=== PATIENT | female | born 1945 | race Caucasian/White ===

== ENCOUNTER 2018-12-26 06:38 | Inpatient (IN) | payer OTHER, MEDICARE ==
[2018-12-26] MEDS ORDERED: BENZOIN TINCTURE SWABSTICK TP ONE ×2 (07:28→14:17)
[2018-12-26] MEDS ORDERED: THROMBIN (BOVINE) 5,000 UNIT VIAL TP ONE ×2 (07:28→11:03)
[2018-12-26] MEDS ORDERED: HEPARIN NA (PORCINE) 5,000 UNITS/ML 1ML VIAL ONE (07:28)
[2018-12-26] MEDS ORDERED: BUPIVACAINE LIPOSOME/PF (EXPAREL) 266 MG/20 ML VIAL ONE (08:30)
[2018-12-26] MEDS ORDERED: BUPIVACAINE HCL/PF 0.5% (5MG/ML) 10 ML VIAL ONE (08:30)
[2018-12-26 08:58] LABS: EPI CELLS 5.4 /HPF (0-5/HPF); HYALINE CASTS 3 /lpf (0-8); PH,URINE 5.5 (5.0-8.0); URINE APPEARANCE CLEAR; URINE BACTERIA 41.6 /hpf (NEGATIVE); URINE BILIRUBIN NEGATIVE (NEGATIVE); URINE COLOR YELLOW; URINE GLUCOSE (UA) NEGATIVE (NEGATIVE); URINE KETONE NEGATIVE (NEGATIVE); URINE LEUK ESTERASE 2+ (NEGATIVE); URINE NITRITE NEGATIVE (NEGATIVE); URINE PROTEIN NEGATIVE (NEGATIVE); URINE RBC 1 /hpf (0-4); URINE UROBILINOGEN 0.2 mg/dL (0.2-1.0); URINE WBC 13 /hpf (0-5)
[2018-12-26] MEDS ORDERED: SUCCINYLCHOLINE CHLORIDE 200 MG/10 ML SYRINGE ONE (09:12)
[2018-12-26] MEDS ORDERED: PROPOFOL 20 ML ONE ×11 (09:12→13:20)
[2018-12-26] MEDS ORDERED: HYDROmorphone HCl 2 MG/ML VIAL ONE (09:12)
[2018-12-26] MEDS ORDERED: fentaNYL CITRATE 250 MCG/5 ML VIAL ONE ×2 (09:12→12:00)
[2018-12-26] MEDS ORDERED: ROCURONIUM BROMIDE 50 MG/5 ML VIAL ONE (09:13)
[2018-12-26] MEDS ORDERED: MIDAZOLAM HCL 2 MG/2 ML SINGLE DOSE VIAL ONE ×3 (09:13)
[2018-12-26] MEDS ORDERED: TRANEXAMIC ACID 1000 MG/10 ML VIAL ONE ×2 (09:15→10:52)
[2018-12-26] MEDS ORDERED: ceFAZolin SODIUM 1 GM VIAL ONE ×2 (09:15→22:27)
[2018-12-26] MEDS ORDERED: VANCOMYCIN 1,000 MG VIAL (RESTRICTED TO ID ONLY) ONE (09:15)
[2018-12-26] MEDS ORDERED: DEXAMETHASONE SOD PHOSPHATE 4 MG/1 ML VIAL ONE ×2 (09:15→09:46)
[2018-12-26] MEDS ORDERED: ceFAZolin SODIUM 1 GM VIAL IVPB ONE ×2 (09:40→12:52)
[2018-12-26] MEDS ORDERED: MORPHINE 5 MG/10 ML AMP - FOR COMPOUNDING USE ONLY ONE (09:54)
[2018-12-26] MEDS ORDERED: VANCOMYCIN 1,000 MG VIAL (RESTRICTED TO ID ONLY) IVPB ONE (10:00)
[2018-12-26] MEDS ORDERED: GELATIN, ABSORBABLE 100 EACH SPONGE TP ONE (11:04)
[2018-12-26] MEDS ORDERED: BUPIVACAINE LIPOSOME/PF (EXPAREL) 266 MG/20 ML VIAL IJ ONE ×2 (11:05→13:20)
[2018-12-26] MEDS ORDERED: BUPIVACAINE HCL/PF (5 MG/ML) 30 ML VIAL IJ ONE ×2 (11:05→13:20)
[2018-12-26] MEDS ORDERED: ePHEDrine SULFATE 50 MG/1 ML AMPULE ONE (11:34)
--- NOTE | 2018-12-26 12:49 | PN ---
Progress Note (short form) - Note Progress Note: 73F s/p removal of failed & displaced thoracolumbar hardware, inspection of fusion mass, revision instrumentation T11-S1, and revision posterolateral arthrodesis T11-S1. -Admit to ICU post-op. -Pain control: DIRECTOR OF CAREER RESOURCES if needed; transition to oral analgesia post-op; NO NSAID's. -DVT PPx: -Mechanical only: DORITA's, SCD's. -Chemical: None. -Incentive spirometry. -NPO until flatus. -Seals care; d/c when ambulating. -Post-op Ancef x 3 doses. -PT/OT/Rehab, OOB. -WBAT B/L LE. -No bending, lifting (>5 lbs), or twisting for 9-12 months. -Care per ICU & medical hospitalist teams. -Discharge planning: f/u 7-10 days after discharge at [facility] office; call for appointment; . -Will follow. Thang Connolly MD (Orthopaedic Surgery).
--- NOTE | 2018-12-26 12:55 | OP ---
Operative Note - Note: Operative Date: 12/26/18 Pre-Operative Diagnosis: 1. Displaced, failed thoracic hardware. 2. Thoracolumbar pseudarthrosis. 3. Thoracolumbar spinal instability Operation: 1. Removal of failed & displaced thoracolumbar hardware. 2. Inspection of fusion mass. 3. Revision instrumentation T11-S1. 4. Revision posterolateral arthrodesis T11-S1. 5. Revision decompression T11-L3. 6. Bone autograft. 7. Bone allograft. 8. Bone marrow aspirate concentrate Findings: Failed hardware at thoracolumbar junction with displaced screw caps and rods resting outside screw tulips. Pseudarthrosis thoracolumbar spine. Post-Operative Diagnosis: Same as Pre-op Surgeon: Thang Connolly Crane Oiler: Zoran Connolly Anesthesiologist/FORENSIC MATERIALS ENGINEER: Darrin Bhat Anesthesia: General Specimens Removed: Thoracolumbar hardware Estimated Blood Loss (mls): 600 Drains & Tubes with Location: 1 x deep HemoVac Blood Volume Replaced (mls): 250 (Cell Saver) Fluid Volume Replaced (mls): 2,000 (Crystalloid) Operative Report Dictated: Yes
[2018-12-26] MEDS ORDERED: BENZOIN/ALOE VERA/STORAX/TOLU 58 ML BOTTLE TP ONE (14:18)
[2018-12-26] MEDS ORDERED: oxyCODONE HCL 5 MG TABLET PO PRN (14:43)
--- NOTE | 2018-12-26 15:14 | CONSULT ---
Consultation: REQUESTING PROVIDER: Dr Connolly CONSULT REQUEST: We have been asked to medically evaluate this patient for ( specify). HISTORY OF PRESENT ILLNESS: 73 y/o female with PMH of COPD, HTN, HLD is POD #0 s/p removal of failed and displaced thoracolumbar hardware inspection of fusion mass, revision instrumentation T11-S1, and revision posterolateral arthrodesis T11-S1 . Patient was kept intubated for few hours post-op as per anesthesiologist due to prone positioning- her eyes appeared edematous and there was concern for some airway edema as well; but patient was extubated at 5:25 pm and placed on nasal canula REVIEW OF SYSTEMS: (unobtained as patient is intubated) CONSTITUTIONAL: Absent: fever, chills, diaphoresis, generalized weakness, malaise, loss of appetite, weight change HEENT: Absent: rhinorrhea, nasal congestion, throat pain, throat swelling, difficulty swallowing, mouth swelling, ear pain, eye pain, visual changes CARDIOVASCULAR: Absent: chest pain, syncope, palpitations, irregular heart rate, lightheadedness , peripheral edema RESPIRATORY: Absent: cough, shortness of breath, dyspnea with exertion, orthopnea, wheezing, stridor, hemoptysis GASTROINTESTINAL: Absent: abdominal pain, abdominal distension, nausea, vomiting, diarrhea, constipation, melena, hematochezia GENITOURINARY: Absent: dysuria, frequency, urgency, hesitancy, hematuria, flank pain, genital pain MUSCULOSKELETAL: Present: back pain Absent: myalgia, arthralgia, joint swelling,, neck pain SKIN: Absent: rash, itching, pallor HEMATOLOGIC/IMMUNOLOGIC: Absent: easy bleeding, easy bruising, lymphadenopathy, frequent infections ENDOCRINE: Absent: unexplained weight gain, unexplained weight loss, heat intolerance, cold intolerance NEUROLOGIC: Absent: headache, focal weakness or paresthesias, dizziness, unsteady gait, seizure, mental status changes, bladder or bowel incontinence PSYCHIATRIC: Absent: anxiety, depression, suicidal or homicidal ideation, hallucinations. PHYSICAL EXAMINATION Vital Signs - 24 hr 12/26/18 12/26/18 07:07 07:08 Temperature 97.6 F 97.6 F Pulse Rate 70 70 Respiratory 20 20 Rate Blood Pressure 150/92 150/92 O2 Sat by Pulse 99 Oximetry (%) GENERAL: intubated, sedated . EYES: PEERLA; EOMI; no scleral icterus . NECK:no JVD; no lymphadenopathy LUNGS: CTA B/L; no rales, rhonchi or wheezing HEART: Regular rate and rhythm, normal S1 and S2 without murmur, rub or gallop. ABDOMEN: Soft, NT/ND +BS in all 4 quadrants MUSCULOSKELETAL: Normal range of motion at all joints. No bony deformities or tenderness. No CVA tenderness. EXTREMITIES: SCD;s in place- warm; well-perfused no clubbing/cyanosis or edema NEUROLOGICAL: moving all extremities ; sensation intact throughout PSYCHIATRIC: Cooperative. Good eye contact. Appropriate mood and affect. SKIN: Warm, dry, normal turgor, no rashes or lesions noted. Laboratory Results - last 24 hr 12/26/18 12/26/18 12/26/18 06:51 07:30 08:08 Urine Color Yellow Urine Appearance Clear Urine pH 5.5 Ur Specific [place] 1.017 Urine Protein Negative Urine Glucose (UA) Negative Urine Ketones Negative Urine Blood Negative Urine Nitrite Negative Urine Bilirubin Negative Urine Urobilinogen 0.2 Ur Leukocyte Esterase 2+ H Urine WBC (Auto) 13 Urine RBC (Auto) 1 Urine Casts (Auto) 3 U Epithel Cells (Auto) 5.4 Urine Bacteria (Auto) 41.6 Blood Type A POSITIVE A POSITIVE Antibody Screen Negative Active Medications Generic Name Dose Route Start Last Admin Trade Name Ikerq PRN Reason Stop Dose Admin Acetaminophen 1,000 mg 12/26/18 14:45 Ofirmev Injection - IVPB 12/27/18 06:46 Q8H [facility] Albuterol Sulfate puff 12/26/18 18:00 Ventolin Hfa Inhaler - IH QID [facility] Amlodipine Besylate 10 mg 12/27/18 10:00 Norvasc - PO DAILY [facility] Donepezil HCl 10 mg 12/27/18 10:00 Aricept - PO DAILY [facility] Hydroxyzine HCl 25 mg 12/26/18 22:00 Atarax - PO HS [facility] Lactated Ringer's 1,000 mls @ 125 mls/hr 12/26/18 14:45 Lactated Ringers Solution IV ASDIR [facility] Cefazolin Sodium 1 gm/ 50 mls @ 100 mls/hr 12/26/18 17:30 Dextrose IVPB 12/27/18 05:59 Q6H [facility] Metoprolol Succinate 50 mg 12/27/18 10:00 Toprol Xl - PO DAILY [facility] Non-Formulary Medication 40 mg 12/27/18 10:00 Benazepril Hcl [Lotensin] PO DAILY [facility] Non-Formulary Medication 600 mg 12/26/18 22:00 Gabapentin [Neurontin] PO TID [facility] Non-Formulary Medication 80 mg 12/26/18 22:00 Lovastatin [Altoprev] PO HS [facility] Non-Formulary Medication 50 mg 12/27/18 10:00 Mirabegron [Myrbetriq] PO DAILY [facility] Ondansetron HCl 4 mg 12/26/18 14:43 Zofran Injection IVPUSH Q6H PRN NAUSEA AND/OR VOMITING Oxycodone HCl 5 mg 12/26/18 14:43 Roxicodone - PO Q4H PRN PAIN LEVEL 1-5 Oxycodone HCl 10 mg 12/26/18 14:43 Roxicodone - PO Q4H PRN PAIN LEVEL 6-10 Pneumococcal 13-Valent Conj Vacc 0.5 ml 12/26/18 07:23 Prevnar 13 Syringe - IM 12/26/18 07:24 .ONCE ONE ASSESSMENT/PLAN: 73 y/o female with PMH of HTN, COPD, HLD, disc disease, peripheral neuropathy who is POD #0 s/p removal of failed and displaced hardware, inspection of fusion mass, revision instrumentation of T11-S1 and revision posterolateral arthrodesis T11-S1 #Neuro just extubated -will do full neuro exam once sedation wears off -c/w meds for peripheral neuropathy #POD #0 patient is no longer intubated EBL was 600 cc; replaced with 200 cell saver and 2000 crystalloid -dilaudid CRUISE AGENT; 50 fentanyl X4 ; 30 toradol X 2 -IV tylenol PRN -ancef x3 doses post op -dilaudid CRUISE AGENT -incentive spirometer -NPO -SCDS in place -monitor vitals/hemodynamics #Cardio HTN;HLD stable -resume home meds #Pulm COPD history -will resume home inhalers -monitor respiratory status F/E/N LR @125mls/hr monitor electrolytes NPO for now DVT PPX: SCDS Dispo: We will continue to follow the patient. Thank you for this consultative opportunity. Problem List - Problems (1) HTN (hypertension) Code(s): I10 - ESSENTIAL (PRIMARY) HYPERTENSION (2) COPD (chronic obstructive pulmonary disease) Code(s): J44.9 - CHRONIC OBSTRUCTIVE PULMONARY DISEASE, UNSPECIFIED (3) Peripheral neuropathy Code(s): G62.9 - POLYNEUROPATHY, UNSPECIFIED (4) S/P spinal surgery Code(s): Z98.890 - OTHER SPECIFIED POSTPROCEDURAL STATES Visit type - Emergency Visit Emergency Visit: Yes ED Registration Date: 12/26/18 Care time: The patient presented to the Emergency Department on the above date and was hospitalized for further evaluation of their emergent condition. - New Patient This patient is new to me today: Yes Date on this admission: 12/26/18 - Critical Care Critical Care patient: Yes Total Critical Care Time (in minutes): 35 Critical Care Statement: The care of this patient involved high complexity decision making to prevent further life threatening deterioration of the patient 's condition and/or to evaluate & treat vital organ system(s) failure or risk of failure.
[2018-12-26] MEDS ORDERED: ONDANSETRON 4 MG/2 ML VIAL IVPUSH PRN (15:40)
[2018-12-26] MEDS ORDERED: MIDAZOLAM HCL 2 MG/2 ML SINGLE DOSE VIAL IVPUSH PRN (15:41)
[2018-12-26] MEDS: ACETAMINOPHEN 1000 MG/100 ML VIAL (NON FORMULARY) IVPB SCH ×2 (16:04→22:28)
[2018-12-26] MEDS: LACTATED RINGERS SOLUTION 1,000 ML IV SCH (16:05)
[2018-12-26] MEDS: CEFAZOLIN 1 GM in DEXTROSE 5%-WATER - 50 ML IVPB SCH ×2 (16:32→23:59)
--- NOTE | 2018-12-26 16:35 | PN ---
Progress Note, Physician - Current Medication List Current Medications: Active Medications Acetaminophen (Ofirmev Injection -) 1,000 mg IVPB Q8H [facility] Stop: 12/27/18 06:46 Last Admin: 12/26/18 16:04 Dose: 1,000 mg Albuterol Sulfate (Ventolin Hfa Inhaler -) 2 puff IH RQID [facility] Amlodipine Besylate (Norvasc -) 10 mg PO DAILY [facility] Atorvastatin Calcium (Lipitor -) 20 mg PO HS [facility] Donepezil HCl (Aricept -) 10 mg PO DAILY [facility] Fentanyl (Sublimaze Injection -) 25 mcg IVPUSH [id number] PRN PRN Reason: PAIN-PACU ORDER X 4 DOSES ONLY Last Admin: 12/26/18 16:29 Dose: 25 mcg Gabapentin (Neurontin -) 600 mg PO TID [facility] Hydroxyzine HCl (Atarax -) 25 mg PO HS [facility] Lactated Ringer's (Lactated Ringers Solution) 1,000 mls @ 125 mls/hr IV ASDIR [facility] Last Admin: 12/26/18 16:05 Dose: 125 mls/hr Cefazolin Sodium 1 gm/ (Dextrose) 50 mls @ 100 mls/hr IVPB Q6H [facility] Stop: 12/27/18 05:59 Lisinopril (Prinivil) 40 mg PO DAILY [facility] Metoprolol Succinate (Toprol Xl -) 50 mg PO DAILY [facility] Midazolam HCl (Versed -) 2 mg IVPUSH ONCE PRN PRN Reason: AGITATION Stop: 12/27/18 15:40 Non-Formulary Medication (Mirabegron [Myrbetriq]) 50 mg PO DAILY [facility] Ondansetron HCl (Zofran Injection) 4 mg IVPUSH Q6H PRN PRN Reason: NAUSEA AND/OR VOMITING Oxycodone HCl (Roxicodone -) 5 mg PO Q4H PRN PRN Reason: PAIN LEVEL 1-5 Oxycodone HCl (Roxicodone -) 10 mg PO Q4H PRN PRN Reason: PAIN LEVEL 6-10 Pneumococcal 13-Valent Conj Vacc (Prevnar 13 Syringe -) 0.5 ml IM .ONCE ONE Stop: 12/26/18 07:24 - Objective Vital Signs: Vital Signs Temperature 97.4 F L 12/26/18 16:12 Pulse Rate 59 L 12/26/18 16:12 Respiratory Rate 20 12/26/18 16:12 Blood Pressure 123/80 12/26/18 16:12 O2 Sat by Pulse Oximetry (%) 100 12/26/18 15:00 Constitutional: Yes: No Distress Eyes: Yes: WNL HENT: Yes: WNL Neck: Yes: WNL Cardiovascular: Yes: WNL Respiratory: Yes: Intubated Gastrointestinal: Yes: WNL Genitourinary: Yes: WNL Musculoskeletal: Yes: WNL Extremities: Yes: WNL Edema: No Integumentary: Yes: WNL Wound/Incision: Yes: Clean/Dry, Well Approximated Neurological: Yes: WNL Assessment/Plan 73 yo lady with PMH of COPD, HTN, HLD s/p removal of failed and displaced thoracolumbar hardware inspection of fusion mass, revision instrumentation T11- S1, and revision posterolateral arthrodesis T11-S1 currently sedated and intubated. wean off vent as tolerated, pain management. -GI, DVT prophylaxis. -h/o chronic COPD: cont bronchodilators. -ID: treatd with cefazolin. -HTN: cont amlodipine, lisinopril, metoprolol. -peripheral neuropathy: cont gabapentin 600 mg TID -NPO, IV fluids -ICU care appreciated.
[2018-12-26] MEDS ORDERED: KETOROLAC TROMETHAMINE 30 MG/1 ML VIAL IVPUSH ONE (17:30)
[2018-12-26] MEDS: ALBUTEROL SO4 8 GM HFA INHALER IH SCH (17:34)
[2018-12-26] MEDS ORDERED: KETOROLAC TROMETHAMINE 30 MG/1 ML VIAL IVPUSH PRN (17:36)
[2018-12-26] MEDS ORDERED: PNEUMOC 13-VAL CONJ-DIP CRM/PF 0.5 ML DISP.SYRIN IM ONE (18:27)
[2018-12-26] MEDS: HYDROmorphone *PCA* 10MG/50ML DISP.SYRIN PCA SCH (18:39)
[2018-12-26] MEDS ORDERED: DEXTROSE 5%-WATER - 50 ML IVPB ONE (22:27)
[2018-12-26] MEDS: GABAPENTIN 300 MG CAPSULE (FP) PO SCH (22:28)
[2018-12-26] MEDS: ATORVASTATIN CA 20 MG TABLET (FP) PO SCH (22:29)
[2018-12-26] MEDS: hydrOXYzine HCL 25 MG TABLET (FP) PO SCH (23:59)
[2018-12-27] MEDS ORDERED: LABETALOL HCL 5 MG/1 ML (100MG/20 ML VIAL) IVPUSH ONE (00:27)
[2018-12-27] MEDS: hydrOXYzine HCL 25 MG TABLET (FP) PO SCH ×2 (00:32→21:14)
[2018-12-27] MEDS ORDERED: DEXTROSE 5%-WATER - 50 ML IVPB ONE (04:28)
[2018-12-27] MEDS ORDERED: ceFAZolin SODIUM 1 GM VIAL ONE (04:28)
[2018-12-27] MEDS: GABAPENTIN 300 MG CAPSULE (FP) PO SCH ×3 (05:00→21:14)
[2018-12-27] MEDS: CEFAZOLIN 1 GM in DEXTROSE 5%-WATER - 50 ML IVPB SCH (05:00)
[2018-12-27] MEDS: ACETAMINOPHEN 1000 MG/100 ML VIAL (NON FORMULARY) IVPB SCH (06:00)
[2018-12-27] MEDS ORDERED: amLODIPine BESYLATE 10 MG TABLET (FP) PO ONE (06:12)
[2018-12-27 06:40] LABS: HEMATOCRIT 34.6 % (32.4-45.2); HEMOGLOBIN 11.3 GM/dL (10.7-15.3); MCH 30.5 pg (25.7-33.7); MCHC 32.5 g/dl (32.0-36.0); MEAN CELL VOLUME 93.9 fl (80-96); MEAN PLT VOLUME 9.4 fl (7.5-11.1); PLATELET COUNT 192 K/MM3 (134-434); RBC 3.69 M/mm3 (3.60-5.2); RDW 14.1 % (11.6-15.6); WHITE BLOOD COUNT 12.1 K/mm3 (4.0-10.0)
[2018-12-27] MEDS: ONDANSETRON 4 MG/2 ML VIAL IVPUSH PRN ×2 (06:40→23:50)
[2018-12-27 06:43] LABS: CREATININE 0.8 mg/dL (0.55-1.3); MAGNESIUM 1.8 mg/dL (1.8-2.4); PHOSPHOROUS 3.5 mg/dL (2.5-4.9); POTASSIUM 4.1 mmol/L (3.5-5.1)
[2018-12-27] MEDS: ALBUTEROL SO4 8 GM HFA INHALER IH SCH ×4 (08:00→20:00)
--- NOTE | 2018-12-27 08:37 | PN ---
Physical Exam: SUBJECTIVE: Patient seen and examined at [facility]- no acute events overnight; patient states that she is in a lot of pain still and is nauseous but wants to eat; she denies CP/SOB OBJECTIVE: Vital Signs Period Temp Pulse Resp BP Sys/Jorge Pulse Ox Last 24 Hr 97.4 F-98.2 F 56-70 11-32 120-170/73-101 100-100 GENERAL: The patient is awake, alert, and fully oriented, in no acute distress. EYES: PEERLA: EOMI ;no scleral icterus . NECK:no JVD; no lymphadenopathy LUNGS: CTA B/L; no rales, rhonchi or wheezing HEART: Regular rate and rhythm, S1, S2 without murmur, rub or gallop. ABDOMEN: Soft, nontender, nondistended, normoactive bowel sounds, no guarding, no rebound, no hepatosplenomegaly, no masses. EXTREMITIES: 2+ pulses, warm, well-perfused, no edema; SCDS in place. NEUROLOGICAL: Cranial nerves II through XII grossly intact. Normal speech, gait not observed. 5/5 strength UE and LE B/L; sensation intact throughout PSYCH: Normal mood, normal affect. SKIN: Warm, dry, normal turgor, no rashes or lesions noted Laboratory Results - last 24 hr 12/26/18 12/26/18 12/26/18 06:51 07:30 08:08 WBC RBC Hgb Hct MCV MCH MCHC RDW Plt Count MPV Sodium Potassium Chloride Carbon Dioxide Anion Gap BUN Creatinine Est GFR (CKD-EPI)AfAm Est GFR (CKD-EPI)NonAf Random Glucose Calcium Phosphorus Magnesium Urine Color Yellow Urine Appearance Clear Urine pH 5.5 Ur Specific [place] 1.017 Urine Protein Negative Urine Glucose (UA) Negative Urine Ketones Negative Urine Blood Negative Urine Nitrite Negative Urine Bilirubin Negative Urine Urobilinogen 0.2 Ur Leukocyte Esterase 2+ H Urine WBC (Auto) 13 Urine RBC (Auto) 1 Urine Casts (Auto) 3 U Epithel Cells (Auto) 5.4 Urine Bacteria (Auto) 41.6 Blood Type A POSITIVE A POSITIVE Antibody Screen Negative 12/27/18 12/27/18 05:47 05:47 WBC 12.1 H RBC 3.69 Hgb 11.3 Hct 34.6 MCV 93.9 MCH 30.5 MCHC 32.5 RDW 14.1 Plt Count 192 MPV 9.4 Sodium 136 Potassium 4.1 Chloride 102 Carbon Dioxide 26 Anion Gap 9 BUN 10 Creatinine 0.8 Est GFR (CKD-EPI)AfAm 84.18 Est GFR (CKD-EPI)NonAf 72.63 Random Glucose 121 H Calcium 8.0 L Phosphorus 3.5 Magnesium 1.8 Urine Color Urine Appearance Urine pH Ur Specific [place] Urine Protein Urine Glucose (UA) Urine Ketones Urine Blood Urine Nitrite Urine Bilirubin Urine Urobilinogen Ur Leukocyte Esterase Urine WBC (Auto) Urine RBC (Auto) Urine Casts (Auto) U Epithel Cells (Auto) Urine Bacteria (Auto) Blood Type Antibody Screen Active Medications Generic Name Dose Route Start Last Admin Trade Name Freq PRN Reason Stop Dose Admin Albuterol Sulfate 2 puff 12/26/18 16:00 12/26/18 17:34 Ventolin Hfa Inhaler - IH Not Given RQID [facility] Amlodipine Besylate 10 mg 12/28/18 10:00 Norvasc - PO DAILY [facility] Atorvastatin Calcium 20 mg 12/26/18 22:00 12/26/18 22:29 Lipitor - PO 20 mg HS [facility] Administration Donepezil HCl 10 mg 12/27/18 10:00 Aricept - PO DAILY [facility] Gabapentin 600 mg 12/26/18 22:00 12/27/18 05:00 Neurontin - PO 600 mg TID [facility] Administration Hydromorphone HCl 10 mg 12/26/18 17:45 12/26/18 18:39 Dilaudid Dry Chain Puller - WAFER FABRICATION OPERATOR 10 mg WAFER FABRICATION OPERATOR [facility] Administration Protocol Hydroxyzine HCl 25 mg 12/26/18 22:00 12/27/18 00:32 Atarax - PO Not Given HS [facility] Lactated Ringer's 1,000 mls @ 125 mls/hr 12/26/18 14:45 12/26/18 16:05 Lactated Ringers Solution IV 125 mls/hr ASDIR [facility] Administration Ketorolac Tromethamine 30 mg 12/26/18 17:36 Toradol Injection - IVPUSH 12/27/18 06:30 ONCE PRN PAIN LEVEL 4 - 6 Lisinopril 40 mg 12/27/18 10:00 Prinivil PO DAILY [facility] Metoprolol Succinate 50 mg 12/27/18 10:00 Toprol Xl - PO DAILY [facility] Midazolam HCl 2 mg 12/26/18 15:41 Versed - IVPUSH 12/27/18 15:40 ONCE PRN AGITATION Non-Formulary Medication 50 mg 12/27/18 10:00 Mirabegron [Myrbetriq] PO DAILY [facility] Ondansetron HCl 4 mg 12/26/18 14:43 12/27/18 06:40 Zofran Injection IVPUSH 4 mg Q6H PRN Administration NAUSEA AND/OR VOMITING Oxycodone HCl 5 mg 12/26/18 14:43 Roxicodone - PO Q4H PRN PAIN LEVEL 1-5 Oxycodone HCl 10 mg 12/26/18 14:43 Roxicodone - PO Q4H PRN PAIN LEVEL 6-10 ASSESSMENT/PLAN: 73 y/o female with PMH of HTN, COPD, HLD, disc disease, peripheral neuropathy who is POD #0 s/p removal of failed and displaced hardware, inspection of fusion mass, revision instrumentation of T11-S1 and revision posterolateral arthrodesis T11-S1 #POD #1 patient is no longer intubated EBL was 600 cc; replaced with 200 cell saver and 2000 crystalloid -dilaudid WAFER FABRICATION OPERATOR; oxy 5/10 -IV tylenol PRN -ancef x3 doses post op -dilaudid WAFER FABRICATION OPERATOR -incentive spirometer -NPO -SCDS in place -monitor vitals/hemodynamics #Cardio HTN;HLD stable -resume home meds #Pulm COPD history -will resume home inhalers -monitor respiratory status F/E/N LR @125mls/hr monitor electrolytes clear diet DVT PPX: SCDS Problem List - Problems (1) HTN (hypertension) Code(s): I10 - ESSENTIAL (PRIMARY) HYPERTENSION (2) COPD (chronic obstructive pulmonary disease) Code(s): J44.9 - CHRONIC OBSTRUCTIVE PULMONARY DISEASE, UNSPECIFIED (3) Peripheral neuropathy Code(s): G62.9 - POLYNEUROPATHY, UNSPECIFIED (4) S/P spinal surgery Code(s): Z98.890 - OTHER SPECIFIED POSTPROCEDURAL STATES Visit type - Emergency Visit Emergency Visit: Yes ED Registration Date: 12/26/18 Care time: The patient presented to the Emergency Department on the above date and was hospitalized for further evaluation of their emergent condition. - New Patient This patient is new to me today: No - Critical Care Critical Care patient: Yes Total Critical Care Time (in minutes): 35 Critical Care Statement: The care of this patient involved high complexity decision making to prevent further life threatening deterioration of the patient 's condition and/or to evaluate & treat vital organ system(s) failure or risk of failure. - Discharge Referral Referred to [facility] Med P.C.: No
[2018-12-27] MEDS: LISINOPRIL 20 MG TABLET (FP) PO SCH (09:45)
[2018-12-27] MEDS: DONEPEZIL HCL 10 MG TABLET (FP) PO SCH (09:45)
--- NOTE | 2018-12-27 09:57 | PN ---
HC Provider Note Provider Note: Anesthesia Post-op Pt awake alert, c/o pain on PER DIEM REGISTERED NURSE might consider adding benzo or cyclobenz for muscle relaxation Pt denies n/v, urinary retention, puritis VSS no apparent anesthesia complications continue PER DIEM REGISTERED NURSE Nancy Bhat.
[2018-12-27] MEDS ORDERED: amLODIPine BESYLATE 10 MG TABLET (FP) PO SCH (10:00)
[2018-12-27] MEDS ORDERED: PNEUMOC 13-VAL CONJ-DIP CRM/PF 0.5 ML DISP.SYRIN IM ONE (10:00)
--- NOTE | 2018-12-27 12:30 | PN ---
Progress Note, Physician - Current Medication List Current Medications: Active Medications Albuterol Sulfate (Ventolin Hfa Inhaler -) 2 puff IH RQID [facility] Last Admin: 12/26/18 17:34 Dose: Not Given Amlodipine Besylate (Norvasc -) 10 mg PO DAILY [facility] Atorvastatin Calcium (Lipitor -) 20 mg PO HS [facility] Last Admin: 12/26/18 22:29 Dose: 20 mg Donepezil HCl (Aricept -) 10 mg PO DAILY [facility] Last Admin: 12/27/18 09:45 Dose: 10 mg Gabapentin (Neurontin -) 600 mg PO TID [facility] Last Admin: 12/27/18 05:00 Dose: 600 mg Hydromorphone HCl (Dilaudid Plastic Frame Inserter -) 10 mg WAREHOUSE DELIVERY MANAGER WAREHOUSE DELIVERY MANAGER [facility]; Protocol Last Admin: 12/26/18 18:39 Dose: 10 mg Hydroxyzine HCl (Atarax -) 25 mg PO HS [facility] Last Admin: 12/27/18 00:32 Dose: Not Given Lactated Ringer's (Lactated Ringers Solution) 1,000 mls @ 125 mls/hr IV ASDIR [facility] Last Admin: 12/26/18 16:05 Dose: 125 mls/hr Ketorolac Tromethamine (Toradol Injection -) 30 mg IVPUSH ONCE PRN PRN Reason: PAIN LEVEL 4 - 6 Stop: 12/27/18 06:30 Lisinopril (Prinivil) 40 mg PO DAILY [facility] Last Admin: 12/27/18 09:45 Dose: 40 mg Metoprolol Succinate (Toprol Xl -) 50 mg PO DAILY [facility] Last Admin: 12/27/18 09:45 Dose: 50 mg Midazolam HCl (Versed -) 2 mg IVPUSH ONCE PRN PRN Reason: AGITATION Stop: 12/27/18 15:40 Non-Formulary Medication (Mirabegron [Myrbetriq]) 50 mg PO DAILY [facility] Ondansetron HCl (Zofran Injection) 4 mg IVPUSH Q6H PRN PRN Reason: NAUSEA AND/OR VOMITING Last Admin: 12/27/18 06:40 Dose: 4 mg Oxycodone HCl (Roxicodone -) 5 mg PO Q4H PRN PRN Reason: PAIN LEVEL 1-5 Oxycodone HCl (Roxicodone -) 10 mg PO Q4H PRN PRN Reason: PAIN LEVEL 6-10 - Objective Vital Signs: Vital Signs Temperature 99.0 F 12/27/18 10:00 Pulse Rate 75 12/27/18 10:00 Respiratory Rate 23 H 12/27/18 10:00 Blood Pressure 145/89 12/27/18 10:00 O2 Sat by Pulse Oximetry (%) 100 12/27/18 09:00 Constitutional: Yes: Well Nourished, No Distress Eyes: Yes: WNL HENT: Yes: WNL Neck: Yes: WNL Cardiovascular: Yes: WNL Respiratory: Yes: WNL Gastrointestinal: Yes: WNL ...Rectal Exam: Yes: Deferred Genitourinary: Yes: WNL Musculoskeletal: Yes: WNL Extremities: Yes: WNL Edema: No Integumentary: Yes: WNL Wound/Incision: Yes: Clean/Dry, Well Approximated Neurological: Yes: WNL ...Motor Strength: WNL Labs: CBC, BMP 12/27/18 05:47 12/27/18 05:47 Assessment/Plan 73 yo lady with PMH of COPD, HTN, HLD s/p removal of failed and displaced thoracolumbar hardware inspection of fusion mass, revision instrumentation T11- S1, and revision posterolateral arthrodesis T11-S1 S/P successful extubation. no complications cont incentive spirometry, pain management. -GI, DVT prophylaxis. -h/o chronic COPD: cont bronchodilators. -ID: treatd with cefazolin. -HTN: cont amlodipine, lisinopril, metoprolol. -peripheral neuropathy: cont gabapentin 600 mg TID -oral diet; aspiration precautions. meds and blood work reviewed -assessment and plan discussed with pt and daughter at bedside. they would like to f/u with me at [facility] for rehab DC planned for tomorrow -ICU care appreciated.
--- NOTE | 2018-12-27 13:44 | PN ---
Teaching Attending Note Name of Resident: Mahsa Acevedo ATTENDING PHYSICIAN STATEMENT I saw and evaluated the patient. I reviewed the resident's note and discussed the case with the resident. I agree with the resident's findings and plan as documented. SUBJECTIVE: Patient seen and examined in the ICU. Awake and alert. Reports significant back pain. No CP or SOB. Intake & Output 12/24/18 12/25/18 12/26/18 12/27/18 23:59 23:59 23:59 23:59 Intake Total 2250 3450 Output Total 820 2840 Balance 1430 610 Weight 140 lb 134 lb 7 oz 129 lb 3 oz Last Vital Signs Temp Pulse Resp BP Pulse Ox 99.0 F 76 21 H 134/61 100 12/27/18 10:00 12/27/18 12:00 12/27/18 12:00 12/27/18 12:00 12/27/18 09:00 Active Medications Albuterol Sulfate (Ventolin Hfa Inhaler -) 2 puff IH RQID [facility] Last Admin: 12/26/18 17:34 Dose: Not Given Amlodipine Besylate (Norvasc -) 10 mg PO DAILY [facility] Atorvastatin Calcium (Lipitor -) 20 mg PO [facility] Last Admin: 12/26/18 22:29 Dose: 20 mg Donepezil HCl (Aricept -) 10 mg PO DAILY [facility] Last Admin: 12/27/18 09:45 Dose: 10 mg Gabapentin (Neurontin -) 600 mg PO TID [facility] Last Admin: 12/27/18 05:00 Dose: 600 mg Hydromorphone HCl (Dilaudid Principal Software Architect -) 10 mg MARKETING EDITOR MARKETING EDITOR [facility]; Protocol Last Admin: 12/26/18 18:39 Dose: 10 mg Hydroxyzine HCl (Atarax -) 25 mg PO [facility] Last Admin: 12/27/18 00:32 Dose: Not Given Lactated Ringer's (Lactated Ringers Solution) 1,000 mls @ 125 mls/hr IV ASDIR [facility] Last Admin: 12/26/18 16:05 Dose: 125 mls/hr Ketorolac Tromethamine (Toradol Injection -) 30 mg IVPUSH ONCE PRN PRN Reason: PAIN LEVEL 4 - 6 Stop: 12/27/18 06:30 Lisinopril (Prinivil) 40 mg PO DAILY [facility] Last Admin: 12/27/18 09:45 Dose: 40 mg Metoprolol Succinate (Toprol Xl -) 50 mg PO DAILY [facility] Last Admin: 12/27/18 09:45 Dose: 50 mg Midazolam HCl (Versed -) 2 mg IVPUSH ONCE PRN PRN Reason: AGITATION Stop: 12/27/18 15:40 Non-Formulary Medication (Mirabegron [Myrbetriq]) 50 mg PO DAILY [facility] Ondansetron HCl (Zofran Injection) 4 mg IVPUSH Q6H PRN PRN Reason: NAUSEA AND/OR VOMITING Last Admin: 12/27/18 06:40 Dose: 4 mg Oxycodone HCl (Roxicodone -) 5 mg PO Q4H PRN PRN Reason: PAIN LEVEL 1-5 Oxycodone HCl (Roxicodone -) 10 mg PO Q4H PRN PRN Reason: PAIN LEVEL 6-10 GENERAL: Awake and alert, NAD EYES: PEERLA; EOMI; no scleral icterus . NECK:no JVD; no lymphadenopathy LUNGS: Clear HEART: Regular rate and rhythm, normal S1 and S2 without murmur, rub or gallop. ABDOMEN: Soft, NT/ND +BS in all 4 quadrants MUSCULOSKELETAL: Normal range of motion at all joints. No bony deformities or tenderness. No CVA tenderness. EXTREMITIES: SCD;s in place- warm; well-perfused no clubbing/cyanosis or edema NEUROLOGICAL: moving all extremities ; sensation intact throughout PSYCHIATRIC: Cooperative. Good eye contact. Appropriate mood and affect. SKIN: Warm, dry, normal turgor, no rashes or lesions noted. Laboratory Results - last 24 hr 12/27/18 12/27/18 05:47 05:47 WBC 12.1 H RBC 3.69 Hgb 11.3 Hct 34.6 MCV 93.9 MCH 30.5 MCHC 32.5 RDW 14.1 Plt Count 192 MPV 9.4 Sodium 136 Potassium 4.1 Chloride 102 Carbon Dioxide 26 Anion Gap 9 BUN 10 Creatinine 0.8 Est GFR (CKD-EPI)AfAm 84.18 Est GFR (CKD-EPI)NonAf 72.63 Random Glucose 121 H Calcium 8.0 L Phosphorus 3.5 Magnesium 1.8 Problem List - Problems (1) HTN (hypertension) Code(s): I10 - ESSENTIAL (PRIMARY) HYPERTENSION (2) COPD (chronic obstructive pulmonary disease) Code(s): J44.9 - CHRONIC OBSTRUCTIVE PULMONARY DISEASE, UNSPECIFIED (3) Peripheral neuropathy Code(s): G62.9 - POLYNEUROPATHY, UNSPECIFIED (4) S/P spinal surgery Code(s): Z98.890 - OTHER SPECIFIED POSTPROCEDURAL STATES ASSESSMENT/PLAN: POD #1 S/P removal of failed and displaced hardware, inspection of fusion mass, revision instrumentation of T11-S1 and revision posterolateral arthrodesis T11- S1 HTN COPD HLD Disc disease Peripheral neuropathy Pain control Incentive Spirometry O2 as needed VTE prophylaxis PO as tolerated Floor when OK with Surgery Dr Diaz
[2018-12-27] MEDS ORDERED: PT OWN MED DRAWER 7, Y5N ONE (14:23)
[2018-12-27] MEDS: oxyCODONE HCL 5 MG TABLET PO PRN ×3 (14:42→23:47)
[2018-12-27] MEDS: LACTATED RINGERS SOLUTION 1,000 ML IV SCH (14:53)
[2018-12-27 15:10] VITALS: BMI 22.1
[2018-12-27] MEDS: ATORVASTATIN CA 20 MG TABLET (FP) PO SCH (21:13)
[2018-12-27] MEDS: HYDROmorphone *PCA* 10MG/50ML DISP.SYRIN PCA SCH (22:00)
--- NOTE | 2018-12-28 00:33 | OP ---
DATE OF OPERATION: 12/26/2018 PREOPERATIVE DIAGNOSIS: 1. 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 2. Stenosis causing femoral cortical radiculopathy. 3. Pseudoarthrosis thoracolumbar spine. POSTOPERATIVE DIAGNOSIS: 1. 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 2. Stenosis causing femoral cortical radiculopathy. 3. Pseudoarthrosis thoracolumbar spine. OPERATION PERFORMED: 1. Removal of failed hardware. 2. Inspection of fusion mass. 3. Revision of laminectomy T11 to L3. 4. Revision pedicle screw instrumentation T11 to S1. 5. Revision posterolateral arthrodesis T11 to S1. 6. Take-down of pseudoarthrosis. 7. Complex wound closure 40 cm. 8. Use of bone marrow aspirate concentrate from left and right ilium. 9. Use of biplane fluoroscopy and intraoperative neuromonitoring. Cell-saver blood utilized as well. SURGEON: Thang Connolly MD COTTON CLASSER AIDE: Zoran Connolly MD ANESTHESIA: General. ANTIBIOTICS GIVEN: Kefzol 2 g, vancomycin 1 g preoperatively. Kefzol 1 g given intraoperatively. BLOOD LOSS: 650 mL. 250 mL given back through cell-saver. INDICATIONS FOR THE SURGERY: Patient underwent an attempt at marrying a new omar system to the old omar system. Unfortunately, this failed and resulted in a pseudoarthrosis and revision stenosis at the thoracolumbar spine junction. Imaging was evaluated for intraoperative evaluation. OPERATION IN DETAILS: Patient was correctly identified, brought into the operating room, placed prone on the Florin table. Thoracolumbar spine was prepped and draped in the routine manner with Betadine scrub solution, wiped with alcohol, and DuraPrep applied. A window drape applied. A midline incision utilized. The dissection was taken through the skin and subcutaneous tissues. The muscle was lifted off the omar system about the left and right hand side exposing the entire omar system on the right hand side to start. This was what was preoperatively determined as the failing site. Clearly noncapture of the new omar system which had dislodged itself out of the wedding band attachment to the old omar system noted. Severe significant metallosis in the soft tissues encountered. This was debrided, sent to the lab for histopathology. I used this opportunity to explore the other omar. On lifting the muscles, the other omar system, the left omar system was found to be completely loose, as well. The actual cap of the wedding band was completely dislodged, and thus, the entire omar system that had been placed to itself onto the old omar system was loose. An associated pseudoarthrosis was noted after a careful inspection of the fusion mass both left and right hand sides. Revision of the posterior elements were decompressed fromT11 to S1. This was with use of Leksell rongeurs as well as Kerrison up-cuts. Complete decompression reachieved. Once this had been performed, the pseudoarthrosis fibrous tissue was all resected and removed, and the thoracic spine exposed right up to the new screws. All the screws were removed. The screws were completely loose at the intrathoracic spine levels. Once this had been performed, the entire bone bed and soft tissue bed were debrided. The debridement left behind the clear-cut holes from the previous omar systems, and a brand new omar system was inserted from T11 to S1. Each pedicle screw seated appropriately. New direction of pedicle screws were created in most of the screw tracks because of malposition of the original screws, particularly in the thoracic spine. The lumbar spine was much the same as before. The left L5 pedicle screw was left out because of difficulty of inserting a solid screw in that bone bed. The rods were appropriately contoured to the shape of the thoracolumbar spine and to the tulips of the new pedicle screws, and the rods were fixed solidly into position using the appropriate device to seat the caps and appropriately tighten with a torque wrench appropriately. No cross link utilized. On the inspection of the entire construct, there was solid fixation of the thoracolumbar spine at this point. The dissection was taken well beyond the omar seating leaving a space for new bone grafting. The tissue bed was fibrous. Bone marrow aspirate concentrate 120 mL was aspirated from left posterior ileum. This was spun down to the C for the C cells, which are the stem cells associate with bone morphogenic processes. This was mixed with the allograft. Allograft packing transverse plane posteriorly as well to finalize the posterolateral arthrodesis from T11 to S1. At no point were any abnormalities in neuromonitoring. At the time of seating instrumentation, another g of Kefzol was given. The wounds were thoroughly lavaged throughout the procedure, and the retractors relaxed readily throughout to achieve appropriate blood supply to the muscle mass. Once the bone grafting and posterolateral arthrodesis was completed, it was elected to go ahead with closure. Closure was complex wound closure in 4 layers, thus muscle No. 2 Vicryl, fascia No. 2 Vicryl, subcutaneous No. 1 Vicryl, skin 3-0 Monocryl with Steri-Strips, subcuticular suture applied. Drainage 1/8-inch Hemovac inserted. OVERALL COMMENT: Patient has done extremely well following this operation. We nursed in the ICU postoperatively and followed regularly. MD LUZ Brito/[id number] MTDD
[2018-12-28] MEDS ORDERED: SIMETHICONE 80 MG TAB.CHEW (FP) PO ONE (03:30)
[2018-12-28] MEDS ORDERED: DOCUSATE NA 100 MG/10 ML UNIT-DOSE CUPS PO ONE (03:30)
[2018-12-28] MEDS: oxyCODONE HCL 5 MG TABLET PO PRN ×4 (03:51→21:00)
[2018-12-28] MEDS: GABAPENTIN 300 MG CAPSULE (FP) PO SCH ×3 (06:05→21:02)
[2018-12-28] MEDS ORDERED: DOCUSATE SODIUM 100 MG CAPSULE (FP) PO PRN ×2 (07:23→19:58)
--- NOTE | 2018-12-28 07:55 | PN ---
Physical Exam: SUBJECTIVE: Patient seen and examined at bedside patient is complaining of a lot of back and abdominal pains; she has passed a little gas but has not moved her bowels yet; she states every time she moves she has pain; she deneis CP/SOB/ N/V OBJECTIVE: Vital Signs Period Temp Pulse Resp BP Sys/Jorge Pulse Ox Last 24 Hr 99 F-99.8 F 60-76 14-70 122-181/61-90 100-100 GENERAL: The patient is awake, alert, and fully oriented, in slight acute distress. EYES: PEERLA: EOMI; no scleral icterus NECK:no JVD;. LUNGS: Breath sounds equal, clear to auscultation bilaterally, no wheezes, no crackles, no accessory muscle use. HEART: Regular rate and rhythm, S1, S2 without murmur, rub or gallop. ABDOMEN: Soft, nontender, nondistended, normoactive bowel sounds, no guarding, no rebound, no hepatosplenomegaly, no masses. EXTREMITIES: 2+ pulses, warm, well-perfused, no edema. NEUROLOGICAL: Cranial nerves II through XII grossly intact. Normal speech, gait not observed. PSYCH: Normal mood, normal affect. SKIN: Warm, dry, normal turgor, no rashes or lesions noted Active Medications Generic Name Dose Route Start Last Admin Trade Name Freq PRN Reason Stop Dose Admin Albuterol Sulfate 2 puff 12/26/18 16:00 12/27/18 20:00 Ventolin Hfa Inhaler - IH 2 puff RQID [facility] Administration Amlodipine Besylate 10 mg 12/28/18 10:00 Norvasc - PO DAILY [facility] Atorvastatin Calcium 20 mg 12/26/18 22:00 12/27/18 21:13 Lipitor - PO 20 mg HS [facility] Administration Docusate Sodium 100 mg 12/28/18 07:23 Colace - PO BID PRN CONSTIPATION Donepezil HCl 10 mg 12/27/18 10:00 12/27/18 09:45 Aricept - PO 10 mg DAILY [facility] Administration Gabapentin 600 mg 12/26/18 22:00 12/28/18 06:05 Neurontin - PO 600 mg TID [facility] Administration Hydromorphone HCl 10 mg 12/26/18 17:45 12/27/18 22:00 Dilaudid Bell Captain - BUS ATTENDANT 10 mg BUS ATTENDANT [facility] Administration Protocol Hydroxyzine HCl 25 mg 12/26/18 22:00 12/27/18 21:14 Atarax - PO Not Given HS [facility] Lactated Ringer's 1,000 mls @ 125 mls/hr 12/26/18 14:45 12/27/18 14:53 Lactated Ringers Solution IV 125 mls/hr ASDIR [facility] Administration Lisinopril 40 mg 12/27/18 10:00 12/27/18 09:45 Prinivil PO 40 mg DAILY [facility] Administration Metoprolol Succinate 50 mg 12/27/18 10:00 12/27/18 09:45 Toprol Xl - PO 50 mg DAILY [facility] Administration Non-Formulary Medication 50 mg 12/27/18 10:00 Mirabegron [Myrbetriq] PO DAILY [facility] Ondansetron HCl 4 mg 12/26/18 14:43 12/27/18 23:50 Zofran Injection IVPUSH 4 mg Q6H PRN Administration NAUSEA AND/OR VOMITING Oxycodone HCl 5 mg 12/26/18 14:43 Roxicodone - PO Q4H PRN PAIN LEVEL 1-5 Oxycodone HCl 10 mg 12/26/18 14:43 12/28/18 03:51 Roxicodone - PO 10 mg Q4H PRN Administration PAIN LEVEL 6-10 Simethicone 80 mg 12/28/18 07:49 Mylicon - PO Q4H PRN GAS ASSESSMENT/PLAN: 73 y/o female with PMH of HTN, COPD, HLD, disc disease, peripheral neuropathy who is POD #0 s/p removal of failed and displaced hardware, inspection of fusion mass, revision instrumentation of T11-S1 and revision posterolateral arthrodesis T11-S1 #POD #2 -dilaudid BUS ATTENDANT; oxy 5/10 -IV tylenol PRN -dilaudid BUS ATTENDANT -incentive spirometer -clear diet -colace 100 BID in addition to simethicone -SCDS in place -monitor vitals/hemodynamics -PT/rehab -transfer to med-surg #Cardio HTN;HLD stable -resume home meds #Pulm COPD history -will resume home inhalers -monitor respiratory status F/E/N LR @125mls/hr monitor electrolytes clear diet DVT PPX: SCDS Problem List - Problems (1) HTN (hypertension) Code(s): I10 - ESSENTIAL (PRIMARY) HYPERTENSION (2) COPD (chronic obstructive pulmonary disease) Code(s): J44.9 - CHRONIC OBSTRUCTIVE PULMONARY DISEASE, UNSPECIFIED (3) Peripheral neuropathy Code(s): G62.9 - POLYNEUROPATHY, UNSPECIFIED (4) S/P spinal surgery Code(s): Z98.890 - OTHER SPECIFIED POSTPROCEDURAL STATES Visit type - Emergency Visit Emergency Visit: Yes ED Registration Date: 12/26/18 Care time: The patient presented to the Emergency Department on the above date and was hospitalized for further evaluation of their emergent condition. - New Patient This patient is new to me today: No - Critical Care Critical Care patient: No
--- NOTE | 2018-12-28 08:13 | PN ---
Progress Note, Physician Chief Complaint: back pain - Current Medication List Current Medications: Active Medications Albuterol Sulfate (Ventolin Hfa Inhaler -) 2 puff IH RQID [facility] Last Admin: 12/27/18 20:00 Dose: 2 puff Amlodipine Besylate (Norvasc -) 10 mg PO DAILY [facility] Atorvastatin Calcium (Lipitor -) 20 mg PO HS [facility] Last Admin: 12/27/18 21:13 Dose: 20 mg Docusate Sodium (Colace -) 100 mg PO BID PRN PRN Reason: CONSTIPATION Donepezil HCl (Aricept -) 10 mg PO DAILY [facility] Last Admin: 12/27/18 09:45 Dose: 10 mg Gabapentin (Neurontin -) 600 mg PO TID [facility] Last Admin: 12/28/18 06:05 Dose: 600 mg Hydromorphone HCl (Dilaudid Statistics Manager -) 10 mg TACKER OFF TACKER OFF [facility]; Protocol Last Admin: 12/27/18 22:00 Dose: 10 mg Hydroxyzine HCl (Atarax -) 25 mg PO [facility] Last Admin: 12/27/18 21:14 Dose: Not Given Lactated Ringer's (Lactated Ringers Solution) 1,000 mls @ 125 mls/hr IV ASDIR [facility] Last Admin: 12/27/18 14:53 Dose: 125 mls/hr Lisinopril (Prinivil) 40 mg PO DAILY [facility] Last Admin: 12/27/18 09:45 Dose: 40 mg Metoprolol Succinate (Toprol Xl -) 50 mg PO DAILY [facility] Last Admin: 12/27/18 09:45 Dose: 50 mg Non-Formulary Medication (Mirabegron [Myrbetriq]) 50 mg PO DAILY [facility] Ondansetron HCl (Zofran Injection) 4 mg IVPUSH Q6H PRN PRN Reason: NAUSEA AND/OR VOMITING Last Admin: 12/27/18 23:50 Dose: 4 mg Oxycodone HCl (Roxicodone -) 5 mg PO Q4H PRN PRN Reason: PAIN LEVEL 1-5 Oxycodone HCl (Roxicodone -) 10 mg PO Q4H PRN PRN Reason: PAIN LEVEL 6-10 Last Admin: 12/28/18 03:51 Dose: 10 mg Simethicone (Mylicon -) 80 mg PO Q4H PRN PRN Reason: GAS - Objective Vital Signs: Vital Signs Temperature 99 F 12/28/18 04:00 Pulse Rate 62 12/28/18 06:00 Respiratory Rate 14 12/28/18 06:00 Blood Pressure 152/79 12/28/18 06:00 O2 Sat by Pulse Oximetry (%) 100 12/27/18 21:00 Constitutional: Yes: Well Nourished, Anxious Eyes: Yes: WNL HENT: Yes: WNL Neck: Yes: WNL Cardiovascular: Yes: WNL Respiratory: Yes: WNL Gastrointestinal: Yes: WNL Musculoskeletal: Yes: Back Pain Extremities: Yes: WNL Edema: No Psychiatric: Yes: WNL Labs: CBC, BMP 12/27/18 05:47 12/27/18 05:47 Assessment/Plan 73 yo lady with PMH of COPD, HTN, HLD s/p removal of failed and displaced thoraco-lumbar hardware inspection of fusion mass, revision instrumentation T11- S1, and revision posterolateral arthrodesis T11-S1 S/P successful extubation. no complications cont incentive spirometry, pain management. today she is crying as her pain is uncontrolled. still using TACKER OFF pump. -GI, DVT prophylaxis. -h/o chronic COPD: cont bronchodilators. -ID: treatd with cefazolin. -HTN: cont amlodipine, lisinopril, metoprolol. -peripheral neuropathy: cont gabapentin 600 mg TID -oral diet; aspiration precautions. meds and blood work reviewed -assessment and plan discussed with pt and daughter at bedside. they would like to f/u with me at [facility] for rehab DC plan on hold due to uncontrolled pain. I'm afraid she will be sent right back to the hospital for pain management. -ICU care appreciated.
[2018-12-28 08:20] LABS: HEMATOCRIT 33.7 % (32.4-45.2); HEMOGLOBIN 11.1 GM/dL (10.7-15.3); MCH 31.2 pg (25.7-33.7); MCHC 32.9 g/dl (32.0-36.0); MEAN CELL VOLUME 94.6 fl (80-96); MEAN PLT VOLUME 8.8 fl (7.5-11.1); RBC 3.56 M/mm3 (3.60-5.2); RDW 14.1 % (11.6-15.6); WHITE BLOOD COUNT 10.9 K/mm3 (4.0-10.0)
[2018-12-28] MEDS: SIMETHICONE 80 MG TAB.CHEW (FP) PO PRN ×3 (08:40→17:57)
[2018-12-28 08:51] LABS: CALCIUM 8.1 mg/dL (8.5-10.1); CREATININE 0.6 mg/dL (0.55-1.3); MAGNESIUM 2.1 mg/dL (1.8-2.4); PHOSPHOROUS 2.9 mg/dL (2.5-4.9); POTASSIUM 3.8 mmol/L (3.5-5.1)
[2018-12-28] MEDS: LACTATED RINGERS SOLUTION 1,000 ML IV SCH ×3 (09:00→20:11)
[2018-12-28] MEDS: LISINOPRIL 20 MG TABLET (FP) PO SCH (09:26)
[2018-12-28] MEDS: DONEPEZIL HCL 10 MG TABLET (FP) PO SCH (09:26)
[2018-12-28] MEDS ORDERED: amLODIPine BESYLATE 10 MG TABLET (FP) PO SCH (10:00)
[2018-12-28] MEDS: ALBUTEROL SO4 8 GM HFA INHALER IH SCH ×5 (10:00→21:04)
--- NOTE | 2018-12-28 11:52 | PN ---
Teaching Attending Note Name of Resident: Mahsa Acevedo ATTENDING PHYSICIAN STATEMENT I saw and evaluated the patient. I reviewed the resident's note and discussed the case with the resident. I agree with the resident's findings and plan as documented. SUBJECTIVE: Patient seen and examined in the ICU. Awake and alert. Reported back pain this AM seemed worse but now more comfortable. No CP or SOB. Intake & Output 12/25/18 12/26/18 12/27/18 12/28/18 23:59 23:59 23:59 23:59 Intake Total 2250 3170 1840 Output Total 820 4820 650 Balance 1430 -1650 1190 Weight 140 lb 134 lb 7 oz 129 lb 129 lb 9 oz Last Vital Signs Temp Pulse Resp BP Pulse Ox 99.2 F 73 22 H 145/74 100 12/28/18 08:00 12/28/18 08:00 12/28/18 08:00 12/28/18 08:00 12/28/18 09:00 Active Medications Albuterol Sulfate (Ventolin Hfa Inhaler -) 2 puff IH RQID [facility] Last Admin: 12/27/18 20:00 Dose: 2 puff Amlodipine Besylate (Norvasc -) 10 mg PO DAILY [facility] Last Admin: 12/28/18 09:26 Dose: 10 mg Atorvastatin Calcium (Lipitor -) 20 mg PO HS [facility] Last Admin: 12/27/18 21:13 Dose: 20 mg Docusate Sodium (Colace -) 100 mg PO BID PRN PRN Reason: CONSTIPATION Last Admin: 12/28/18 08:39 Dose: 100 mg Donepezil HCl (Aricept -) 10 mg PO DAILY [facility] Last Admin: 12/28/18 09:26 Dose: 10 mg Gabapentin (Neurontin -) 600 mg PO TID [facility] Last Admin: 12/28/18 06:05 Dose: 600 mg Hydromorphone HCl (Dilaudid Welding Machine Operator Plasma Arc -) 10 mg CREW DISPATCHER CREW DISPATCHER [facility]; Protocol Last Admin: 12/27/18 22:00 Dose: 10 mg Hydroxyzine HCl (Atarax -) 25 mg PO HS [facility] Last Admin: 12/27/18 21:14 Dose: Not Given Lactated Ringer's (Lactated Ringers Solution) 1,000 mls @ 125 mls/hr IV ASDIR [facility] Last Admin: 12/27/18 14:53 Dose: 125 mls/hr Lisinopril (Prinivil) 40 mg PO DAILY [facility] Last Admin: 12/28/18 09:26 Dose: 40 mg Metoprolol Succinate (Toprol Xl -) 50 mg PO DAILY [facility] Last Admin: 12/28/18 09:26 Dose: 50 mg Non-Formulary Medication (Mirabegron [Myrbetriq]) 50 mg PO DAILY [facility] Ondansetron HCl (Zofran Injection) 4 mg IVPUSH Q6H PRN PRN Reason: NAUSEA AND/OR VOMITING Last Admin: 12/27/18 23:50 Dose: 4 mg Oxycodone HCl (Roxicodone -) 5 mg PO Q4H PRN PRN Reason: PAIN LEVEL 1-5 Oxycodone HCl (Roxicodone -) 10 mg PO Q4H PRN PRN Reason: PAIN LEVEL 6-10 Last Admin: 12/28/18 03:51 Dose: 10 mg Simethicone (Mylicon -) 80 mg PO Q4H PRN PRN Reason: GAS Last Admin: 12/28/18 08:40 Dose: 80 mg GENERAL: Awake and alert, NAD EYES: PEERLA; EOMI; no scleral icterus . NECK:no JVD; no lymphadenopathy LUNGS: Clear HEART: Regular rate and rhythm, normal S1 and S2 without murmur, rub or gallop. ABDOMEN: Soft, NT/ND +BS in all 4 quadrants MUSCULOSKELETAL: Normal range of motion at all joints. No bony deformities or tenderness. No CVA tenderness. EXTREMITIES: SCD;s in place- warm; well-perfused no clubbing/cyanosis or edema NEUROLOGICAL: moving all extremities ; sensation intact throughout PSYCHIATRIC: Cooperative. Good eye contact. Appropriate mood and affect. SKIN: Warm, dry, normal turgor, no rashes or lesions noted. Laboratory Results - last 24 hr 12/28/18 12/28/18 08:11 08:11 WBC 10.9 H RBC 3.56 L Hgb 11.1 Hct 33.7 MCV 94.6 MCH 31.2 MCHC 32.9 RDW 14.1 MPV 8.8 Sodium 137 Potassium 3.8 Chloride 100 Carbon Dioxide 31 Anion Gap 5 L BUN 7 Creatinine 0.6 Est GFR (CKD-EPI)AfAm 104.07 Est GFR (CKD-EPI)NonAf 89.79 Random Glucose 103 Calcium 8.1 L Phosphorus 2.9 Magnesium 2.1 Problem List - Problems (1) HTN (hypertension) Code(s): I10 - ESSENTIAL (PRIMARY) HYPERTENSION (2) COPD (chronic obstructive pulmonary disease) Code(s): J44.9 - CHRONIC OBSTRUCTIVE PULMONARY DISEASE, UNSPECIFIED (3) Peripheral neuropathy Code(s): G62.9 - POLYNEUROPATHY, UNSPECIFIED (4) S/P spinal surgery Code(s): Z98.890 - OTHER SPECIFIED POSTPROCEDURAL STATES ASSESSMENT/PLAN: POD #2 S/P removal of failed and displaced hardware, inspection of fusion mass, revision instrumentation of T11-S1 and revision posterolateral arthrodesis T11- S1 HTN COPD HLD Disc disease Peripheral neuropathy Pain control Incentive Spirometry O2 as needed VTE prophylaxis PO as tolerated Floor Dr Diaz
[2018-12-28 12:33] LABS: PLATELET COUNT 163 K/MM3 (134-434)
--- NOTE | 2018-12-28 14:33 | PN ---
Progress Note (short form) - Note Progress Note: Pain management note Patient doing well, using MARINE FIREMAN for pain control, tolerating PO. Will d/c drama professor and convert to PO pain medication prn. dept of anesthesia will sign off care at this time
--- NOTE | 2018-12-28 15:45 | PATH ---
Surgical Pathology Report Patient Name: SIMON LANGSTON [facility]. Rec. #: [id number] /Age/Gender: 1945 (Age: 73) / F Account: [id number] Location: ICU QUALITY TECHNICIAN FIBERGLASS Taken: 12/26/2018 Received: 12/27/2018 Reported: 12/28/2018 Physicians: Thang Connolly M.D. Specimen(s) Received A: PARASPINAL METALLOSIS B: REMOVED HARDWARE Clinical History Spinal stenosis Final Diagnosis A. PARASPINAL METALLOSIS, THORACIC LUMBAR FUSION REVISION: FRAGMENTS OF DENSE FIBROCONNECTIVE TISSUE WITH PATCHY CHRONIC INFLAMMATION, HISTIOCYTIC PROLIFERATION, FOCAL GIANT CELL REACTION, BLACK PIGMENT/DEBRIS DEPOSITION, AND ASSOCIATED REACTIVE CHANGES CONSISTENT WITH METALLOSIS. NODULAR CALCIFIC AGGREGATES CONSISTENT WITH CALCIUM PYROPHOSPHATE DIHYDRATE (CPPD) CRYSTALS PRESENT. B. "REMOVED" HARDWARE, REMOVAL: SURGICAL HARDWARE. MACROSCOPIC DIAGNOSIS. Electronically Signed Lizette Jerez M.D. Gross Description A. Received in formalin labeled "paraspinal metallosis," is a 4.0 x 4.0 x 0.7 cm aggregate of abundant kendall-brown fragments of fibrous tissue, some of which have a white chalky appearance. A commissary representative portion is submitted in one cassette. B. Received fresh labeled "removed hardware," are 4 mcpherson metal rods with attached hardware ranging from 9.0-13.5 cm in length. There are 2 mcpherson metallic portions of hardware averaging 2.5 cm in greatest dimension separately received within the same container. Also received within the same container are 33 mcpherson metallic screws ranging from 0.4-6.0 cm in length. No soft tissue is present. No sections are submitted, gross only. 12/27/201812/27/2018
[2018-12-28] MEDS ORDERED: MORPHINE SULFATE 2 MG/ML VIAL IVPUSH ONE (17:54)
--- NOTE | 2018-12-28 18:09 | PN ---
Progress Note (short form) - Note Progress Note: 73F s/p removal of failed & displaced thoracolumbar hardware, inspection of fusion mass, revision instrumentation T11-S1, and revision posterolateral arthrodesis T11-S1 POD #2. Pain well controlled. No acute events overnight. Pt. denies overnight history of headaches, chest pain, shortness of breath, nausea, vomiting, chills, & sweats. (+) Seals; (-) Flatus; (-) BM. All labs and vitals reviewed. PE: AAO x 3, NAD. ThoracoLumbar Spine: Incision, dressing C/D/I. Drain intact & in place. B/L LE M: L2-S1 5/5. B/L LE S: L2-S1 2/2. 73F s/p removal of failed & displaced thoracolumbar hardware, inspection of fusion mass, revision instrumentation T11-S1, and revision posterolateral arthrodesis T11-S1 POD #2. -Pain control: per anaesthesia team; NO NSAID's. -DVT PPx: -Mechanical only: DORITA's, SCD's. -Chemical: None. -Incentive spirometry. -PT/OT/Rehab, OOB. -WBAT B/L LE. -NPO until flatus. -Seals care; d/c when ambulating. -Raised toilet seat. -No bending, lifting (>5 lbs), or twisting for 9-12 months. -Care per ICU & medical hospitalist teams. -Discharge planning: [facility]; call for appointment; . -Will follow. Thang Connolly MD (Orthopaedic Surgery).
[2018-12-28] MEDS ORDERED: oxyCODONE HCL 5 MG TABLET PO PRN (19:58)
[2018-12-28] MEDS ORDERED: SIMETHICONE 80 MG TAB.CHEW (FP) PO PRN (19:58)
[2018-12-28] MEDS: PATIENT'S OWN MEDICATION (NON-FORMULARY) (Mirabegron [Myrbetriq] 50 MG) PO SCH ×2 (20:34→20:36)
[2018-12-28] MEDS: ONDANSETRON 4 MG/2 ML VIAL IVPUSH PRN (20:59)
[2018-12-28] MEDS: ATORVASTATIN CA 20 MG TABLET (FP) PO SCH (21:02)
[2018-12-28] MEDS: hydrOXYzine HCL 25 MG TABLET (FP) PO SCH (21:02)
[2018-12-29] MEDS: oxyCODONE HCL 5 MG TABLET PO PRN ×4 (03:01→20:20)
[2018-12-29] MEDS: ONDANSETRON 4 MG/2 ML VIAL IVPUSH PRN (03:05)
[2018-12-29] MEDS: GABAPENTIN 300 MG CAPSULE (FP) PO SCH ×3 (06:26→22:01)
[2018-12-29 07:53] LABS: HEMATOCRIT 31.5 % (32.4-45.2); HEMOGLOBIN 10.5 GM/dL (10.7-15.3); MCH 31.6 pg (25.7-33.7); MCHC 33.4 g/dl (32.0-36.0); MEAN CELL VOLUME 94.5 fl (80-96); MEAN PLT VOLUME 9.1 fl (7.5-11.1); RBC 3.33 M/mm3 (3.60-5.2); RDW 13.9 % (11.6-15.6); WHITE BLOOD COUNT 8.3 K/mm3 (4.0-10.0)
[2018-12-29 08:05] LABS: CALCIUM 7.9 mg/dL (8.5-10.1); CREATININE 0.5 mg/dL (0.55-1.3); PHOSPHOROUS 2.4 mg/dL (2.5-4.9); POTASSIUM 3.6 mmol/L (3.5-5.1)
[2018-12-29] MEDS: LACTATED RINGERS SOLUTION 1,000 ML IV SCH ×2 (08:45→20:26)
[2018-12-29] MEDS: LISINOPRIL 20 MG TABLET (FP) PO SCH (09:54)
[2018-12-29] MEDS: amLODIPine BESYLATE 10 MG TABLET (FP) PO SCH (09:54)
--- NOTE | 2018-12-29 10:22 | PN ---
Progress Note (short form) - Note Progress Note: POD#3 C/O pain in back no leg pain emotionally labile++ Vitals all stable Blood counts all ok Apyrexial CVS Stable perfusing well RESPO Clear ABD Soft no ? 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 tomorrow
[2018-12-29 11:19] LABS: PLATELET COUNT 260 K/MM3 (134-434)
[2018-12-29] MEDS ORDERED: KETOROLAC TROMETHAMINE 15 MG/ML VIAL IM ONE ×2 (11:30→23:00)
--- NOTE | 2018-12-29 16:14 | PN ---
Progress Note, Physician Chief Complaint: back pain - Current Medication List Current Medications: Active Medications Albuterol Sulfate (Ventolin Hfa Inhaler -) 2 puff IH RQID [facility] Last Admin: 12/28/18 20:57 Dose: 2 puff Amlodipine Besylate (Norvasc -) 10 mg PO DAILY [facility] Last Admin: 12/29/18 09:54 Dose: 10 mg Atorvastatin Calcium (Lipitor -) 20 mg PO HS [facility] Last Admin: 12/28/18 21:02 Dose: 20 mg Docusate Sodium (Colace -) 100 mg PO Q12H PRN PRN Reason: CONSTIPATION Donepezil HCl (Aricept -) 10 mg PO [facility] Gabapentin (Neurontin -) 600 mg PO TID [facility] Last Admin: 12/29/18 15:28 Dose: 600 mg Hydroxyzine HCl (Atarax -) 25 mg PO [facility] Last Admin: 12/28/18 21:02 Dose: 25 mg Lactated Ringer's (Lactated Ringers Solution) 1,000 mls @ 125 mls/hr IV ASDIR [facility] Last Admin: 12/29/18 08:45 Dose: 125 mls/hr Ketorolac Tromethamine (Toradol Injection -) 15 mg IM ONCE@2300 ONE Stop: 12/29/18 23:01 Lisinopril (Prinivil) 40 mg PO DAILY [facility] Last Admin: 12/29/18 09:54 Dose: 40 mg Metoprolol Succinate (Toprol Xl -) 50 mg PO DAILY [facility] Last Admin: 12/29/18 09:55 Dose: 50 mg Ondansetron HCl (Zofran Injection) 4 mg IVPUSH Q6H PRN PRN Reason: NAUSEA AND/OR VOMITING Last Admin: 12/29/18 03:05 Dose: 4 mg Oxycodone HCl (Roxicodone -) 5 mg PO Q4H PRN PRN Reason: PAIN LEVEL 1-5 Oxycodone HCl (Roxicodone -) 10 mg PO Q4H PRN PRN Reason: PAIN LEVEL 6-10 Last Admin: 12/29/18 15:28 Dose: 10 mg Simethicone (Mylicon -) 80 mg PO Q4H PRN PRN Reason: GAS - Objective Vital Signs: Vital Signs Temperature 98.4 F 12/29/18 14:00 Pulse Rate 74 12/29/18 14:00 Respiratory Rate 20 12/29/18 14:00 Blood Pressure 152/65 12/29/18 14:00 O2 Sat by Pulse Oximetry (%) 95 12/29/18 09:00 Constitutional: Yes: Well Nourished, Anxious Eyes: Yes: WNL HENT: Yes: WNL Neck: Yes: WNL Cardiovascular: Yes: WNL Respiratory: Yes: WNL Gastrointestinal: Yes: WNL ...Rectal Exam: Yes: Deferred Genitourinary: Yes: WNL Musculoskeletal: Yes: WNL Extremities: Yes: WNL Edema: No Integumentary: Yes: WNL Wound/Incision: Yes: Clean/Dry, Well Approximated Neurological: Yes: WNL Psychiatric: Yes: Agitated Labs: CBC, BMP 12/29/18 07:00 12/29/18 07:00 Assessment/Plan 73 yo lady with PMH of COPD, HTN, HLD s/p removal of failed and displaced thoraco-lumbar hardware inspection of fusion mass, revision instrumentation T11- S1, and revision posterolateral arthrodesis T11-S1 S/P successful extubation. no complications cont incentive spirometry, pain management. Pt is agitated that her pain management is not optimized. she was moved to a single room due to her screaming. I encouraged her to stay calm as it may jeopardize her DC to rehab. -GI, DVT prophylaxis. -h/o chronic COPD: cont bronchodilators. -ID: treatd with cefazolin. -HTN: cont amlodipine, lisinopril, metoprolol. -peripheral neuropathy: cont gabapentin 600 mg TID -oral diet; aspiration precautions. meds and blood work reviewed hypocalcemia with hypophosphatemia likely from vit D deficiency. -assessment and plan discussed with pt and daughter Nicolle over the phone. they would like to f/u with me at [facility] ([place], [place]) for rehab. DC plan to [facility] ([place], [place]) in progress for tomorrow
--- NOTE | 2018-12-29 16:37 | DS ---
Physical Examination Vital Signs: Vital Signs Temperature 98.4 F 12/29/18 14:00 Pulse Rate 74 12/29/18 14:00 Respiratory Rate 20 12/29/18 14:00 Blood Pressure 152/65 12/29/18 14:00 O2 Sat by Pulse Oximetry (%) 95 12/29/18 09:00 Constitutional: Yes: Well Nourished, No Distress, Calm Eyes: Yes: WNL, Conjunctiva Clear, EOM Intact HENT: Yes: WNL, Atraumatic, Normocephalic Neck: Yes: Tenderness Cardiovascular: Yes: WNL Respiratory: Yes: WNL, Regular, CTA Bilaterally Gastrointestinal: Yes: WNL Renal/: Yes: WNL Extremities: Yes: WNL Integumentary: Yes: WNL Wound/Incision: Yes: Clean/Dry, Well Approximated Psychiatric: Yes: WNL Labs: CBC, BMP 12/29/18 07:00 12/29/18 07:00 Discharge Summary Reason For Visit: SPINAL STENOSIS Current Active Problems COPD (chronic obstructive pulmonary disease) (Acute) HTN (hypertension) (Acute) Peripheral neuropathy (Acute) S/P spinal surgery (Acute) Hospital Course: 73 yo lady with PMH of COPD, HTN, HLD s/p removal of failed and displaced thoraco-lumbar hardware inspection of fusion mass, revision instrumentation T11- S1, and revision posterolateral arthrodesis T11-S1 S/P successful extubation. no complications cont incentive spirometry, pain management. Pt is agitated that her pain management is not optimized. she was moved to a single room due to her screaming. I encouraged her to stay calm as it may jeopardize her DC to rehab. -GI, DVT prophylaxis. -h/o chronic COPD: cont bronchodilators. -ID: treatd with cefazolin. -HTN: cont amlodipine, lisinopril, metoprolol. -peripheral neuropathy: cont gabapentin 600 mg TID -oral diet; aspiration precautions. meds and blood work reviewed hypocalcemia with hypophosphatemia likely from vit D deficiency. -assessment and plan discussed with pt and daughter Nicolle over the phone. Condition: Good - Instructions Diet, Activity, Other Instructions: regular diet Disposition: RESIDENTIAL FACILITY - Home Medications Comprehensive Discharge Medication List: Ambulatory Orders Albuterol Sulfate [Proair Hfa] 8.5 gm IH QID 12/25/18 Amlodipine Besylate [Norvasc -] 10 mg PO DAILY 12/25/18 Aspirin Coated [Ecotrin -] 81 mg PO DAILY 12/25/18 Donepezil HCl [Aricept] 10 mg PO DAILY 12/25/18 Gabapentin [Neurontin] 600 mg PO TID 12/25/18 Hydroxyzine HCl 25 mg PO HS 12/25/18 Metoprolol Succinate [Toprol Xl] 50 mg PO DAILY 12/25/18 Atorvastatin Ca [Lipitor] 20 mg PO HS tablet 12/29/18 Docusate Sodium [Colace -] 100 mg PO BID PRN capsule 12/29/18 Docusate Sodium [Colace -] 100 mg PO Q12H PRN capsule 12/29/18 Lisinopril [Prinivil] 40 mg PO DAILY tablet 12/29/18 Simethicone [Mylicon -] 80 mg PO Q4H PRN tab.chew 12/29/18 oxyCODONE HCL [Roxicodone -] 10 mg PO Q4H PRN tablet MDD 4 12/29/18
[2018-12-29] MEDS ORDERED: DONEPEZIL HCL 10 MG TABLET (FP) PO SCH (22:00)
[2018-12-29] MEDS: ATORVASTATIN CA 20 MG TABLET (FP) PO SCH (22:01)
[2018-12-29] MEDS: hydrOXYzine HCL 25 MG TABLET (FP) PO SCH (22:01)
[2018-12-29] MEDS ORDERED: PT OWN MED DRAWER 7, Y5N ONE (23:08)
[2018-12-30] MEDS: oxyCODONE HCL 5 MG TABLET PO PRN ×3 (02:22→12:55)
[2018-12-30] MEDS: GABAPENTIN 300 MG CAPSULE (FP) PO SCH (08:30)
[2018-12-30] MEDS: ALBUTEROL SO4 8 GM HFA INHALER IH SCH ×3 (08:38→11:07)
--- NOTE | 2018-12-30 08:42 | PN ---
Progress Note, Physician Chief Complaint: back pain - Current Medication List Current Medications: Active Medications Albuterol Sulfate (Ventolin Hfa Inhaler -) 2 puff IH RQID [facility] Last Admin: 12/28/18 20:57 Dose: 2 puff Amlodipine Besylate (Norvasc -) 10 mg PO DAILY [facility] Last Admin: 12/29/18 09:54 Dose: 10 mg Atorvastatin Calcium (Lipitor -) 20 mg PO [facility] Last Admin: 12/29/18 22:01 Dose: 20 mg Docusate Sodium (Colace -) 100 mg PO Q12H PRN PRN Reason: CONSTIPATION Donepezil HCl (Aricept -) 10 mg PO [facility] Last Admin: 12/29/18 22:01 Dose: 10 mg Gabapentin (Neurontin -) 600 mg PO TID [facility] Last Admin: 12/29/18 22:01 Dose: 600 mg Hydroxyzine HCl (Atarax -) 25 mg PO [facility] Last Admin: 12/29/18 22:01 Dose: 25 mg Lactated Ringer's (Lactated Ringers Solution) 1,000 mls @ 125 mls/hr IV ASDIR [facility] Last Admin: 12/29/18 20:26 Dose: 125 mls/hr Lisinopril (Prinivil) 40 mg PO DAILY [facility] Last Admin: 12/29/18 09:54 Dose: 40 mg Metoprolol Succinate (Toprol Xl -) 50 mg PO DAILY [facility] Last Admin: 12/29/18 09:55 Dose: 50 mg Ondansetron HCl (Zofran Injection) 4 mg IVPUSH Q6H PRN PRN Reason: NAUSEA AND/OR VOMITING Last Admin: 12/29/18 03:05 Dose: 4 mg Oxycodone HCl (Roxicodone -) 5 mg PO Q4H PRN PRN Reason: PAIN LEVEL 1-5 Oxycodone HCl (Roxicodone -) 10 mg PO Q4H PRN PRN Reason: PAIN LEVEL 6-10 Last Admin: 12/30/18 02:22 Dose: 10 mg Simethicone (Mylicon -) 80 mg PO Q4H PRN PRN Reason: GAS - Objective Vital Signs: Vital Signs Temperature 98.9 F 12/30/18 07:18 Pulse Rate 74 12/30/18 07:18 Respiratory Rate 20 12/30/18 07:18 Blood Pressure 149/89 12/30/18 07:18 O2 Sat by Pulse Oximetry (%) 95 12/29/18 21:00 Constitutional: Yes: Anxious Eyes: Yes: WNL HENT: Yes: WNL Neck: Yes: WNL Cardiovascular: Yes: WNL Respiratory: Yes: WNL Gastrointestinal: Yes: WNL ...Rectal Exam: Yes: Deferred Genitourinary: Yes: WNL Musculoskeletal: Yes: Back Pain Extremities: Yes: WNL Edema: No Wound/Incision: Yes: Clean/Dry, Well Approximated Neurological: Yes: WNL ...Motor Strength: WNL Psychiatric: Yes: Agitated Labs: CBC, BMP 12/29/18 07:00 12/29/18 07:00 Assessment/Plan 73 yo lady with PMH of COPD, HTN, HLD s/p removal of failed and displaced thoraco-lumbar hardware inspection of fusion mass, revision instrumentation T11- S1, and revision posterolateral arthrodesis T11-S1 S/P successful extubation. no complications cont incentive spirometry, pain management. -GI, DVT prophylaxis. -h/o chronic COPD: cont bronchodilators. -ID: treatd with cefazolin. -HTN: cont amlodipine, lisinopril, metoprolol. -peripheral neuropathy: cont gabapentin 600 mg TID -sonia Armando. TOV successful. -oral diet; aspiration precautions. meds and blood work reviewed hypocalcemia with hypophosphatemia likely from vit D deficiency. -assessment and plan discussed with pt and daughter Nicolle over the phone. [facility] plan to [facility] in progress for today
[2018-12-30] MEDS: amLODIPine BESYLATE 10 MG TABLET (FP) PO SCH (11:06)
[2018-12-30] MEDS: LISINOPRIL 20 MG TABLET (FP) PO SCH (11:07)
--- NOTE | 2018-12-30 12:03 | PN ---
Progress Note (short form) - Note Progress Note: Doing well Apyrexial Neuro fully intact Drain pulled Keep sealed dressing D/C to rehab See in office on followup
[2018-12-30 12:05] VITALS: BP 145/75; PULSE 77; TEMP 99
== END 2018-12-30 14:00 | DRG 454 ==
LOC: JSAMEDAYSX 06:38 → EDBD 08:00 → JICU 15:29 → J8W 12-28 18:24
PROVIDERS: ADMIT Orthopaedic Surgery Orthopaedic Surgery of the Spine; ATTEND Orthopaedic Surgery Orthopaedic Surgery of the Spine
PROC: 0RG6071 Fusion of Thoracic Vertebral Joint with Autologous Tissue Substitute, Posterior Approach, Posterior Column, Open Approach (ICD-10-PCS; 2018-12-26)
PROC: 0RGA0AJ Fusion of Thoracolumbar Vertebral Joint with Interbody Fusion Device, Posterior Approach, Anterior Column, Open Approach (ICD-10-PCS; 2018-12-26)
PROC: 0RGA071 Fusion of Thoracolumbar Vertebral Joint with Autologous Tissue Substitute, Posterior Approach, Posterior Column, Open Approach (ICD-10-PCS; 2018-12-26)
PROC: 0PB40ZZ Excision of Thoracic Vertebra, Open Approach (ICD-10-PCS; 2018-12-26)
PROC: 01N80ZZ Release Thoracic Nerve, Open Approach (ICD-10-PCS; 2018-12-26)
PROC: 01NR0ZZ Release Sacral Nerve, Open Approach (ICD-10-PCS; 2018-12-26)
PROC: 01NB0ZZ Release Lumbar Nerve, Open Approach (ICD-10-PCS; 2018-12-26)
PROC: 0SG10AJ Fusion of 2 or more Lumbar Vertebral Joints with Interbody Fusion Device, Posterior Approach, Anterior Column, Open Approach (ICD-10-PCS; 2018-12-26)
PROC: 0SG1071 Fusion of 2 or more Lumbar Vertebral Joints with Autologous Tissue Substitute, Posterior Approach, Posterior Column, Open Approach (ICD-10-PCS; 2018-12-26)
PROC: 0SG30AJ Fusion of Lumbosacral Joint with Interbody Fusion Device, Posterior Approach, Anterior Column, Open Approach (ICD-10-PCS; 2018-12-26)
PROC: 0SG3071 Fusion of Lumbosacral Joint with Autologous Tissue Substitute, Posterior Approach, Posterior Column, Open Approach (ICD-10-PCS; 2018-12-26)
PROC: 0RP604Z Removal of Internal Fixation Device from Thoracic Vertebral Joint, Open Approach (ICD-10-PCS; 2018-12-26)
PROC: 0RPA04Z Removal of Internal Fixation Device from Thoracolumbar Vertebral Joint, Open Approach (ICD-10-PCS; 2018-12-26)
PROC: 0SP004Z Removal of Internal Fixation Device from Lumbar Vertebral Joint, Open Approach (ICD-10-PCS; 2018-12-26)
PROC: 07DR3ZZ Extraction of Iliac Bone Marrow, Percutaneous Approach (ICD-10-PCS; 2018-12-26)
PROC: B01BZZZ Fluoroscopy of Spinal Cord (ICD-10-PCS; 2018-12-26)
PROC: 4A1004G Monitoring of Central Nervous Electrical Activity, Intraoperative, Open Approach (ICD-10-PCS; 2018-12-26)
PROC: 0RG60AJ Fusion of Thoracic Vertebral Joint with Interbody Fusion Device, Posterior Approach, Anterior Column, Open Approach (ICD-10-PCS; principal; 2018-12-26 09:00)
DX: T84.226A Displacement of internal fixation device of vertebrae, initial encounter (principal); M96.0 Pseudarthrosis after fusion or arthrodesis; I10 Essential (primary) hypertension; J44.9 Chronic obstructive pulmonary disease, unspecified; G62.9 Polyneuropathy, unspecified; E78.5 Hyperlipidemia, unspecified; Y83.9 Surgical procedure, unspecified as the cause of abnormal reaction of the patient, or of later complication, without mention of misadventure at the time of the procedure; E83.51 Hypocalcemia; E83.39 Other disorders of phosphorus metabolism
CPT/HCPCS: 36415; 71045-TC-FY; 76000-TC-FY; 80048; 81003; 83735; 84100; 85027; 86850; 86900; 86901; 88300-TC; 88304-TC; 90670; 94002; 97116-GP; 97162-GP; J0131; J1644